=== PATIENT | female | born 1995 | race Caucasian/White ===

== ENCOUNTER 2020-10-23 02:12 | Outpatient (CLI) | payer MEDICAID, SELFPAY ==
--- NOTE | 2020-10-23 | DI.US_ITS ---
Exam(s) US OB 2-3 TRIMESTER EXAM: US OB 2-3 TRIMESTER CLINICAL HISTORY: SUPERVISION NORMAL IN SECOND TRIMESTER Z34.02. TECHNIQUE: Transabdominal obstetrical ultrasound was performed. COMPARISON: No exams were available for comparison FINDINGS: There is a single viable intrauterine gestation with cardiac activity identified-163 bpm. Amniotic fluid: There is a normal amount of amniotic fluid. Placental location: The placenta is anterior grade 0,with no evidence of placenta previa.The distance from the tip of placenta to the internal cervical os is 7.1 cm ANATOMY: A 3 vessel umbilical cord is seen. A four-chamber cardiac view was obtained. Right and left ventricular outflow tracts were imaged. There are no obvious abnormalities of the spinal column evident. There is no obvious abnormal ity of the anterior abdominal wall. stomach and urinary bladder are identified and there is no evidence of hydronephrosis. No abnormalities of the upper lip region are identified. No evidence of choroid plexus cysts i n the brain. Dating parameters place this at approximately 21 weeks and 5 days gestational age. BPD measures 21 weeks and 6 days HC measures 21 weeks and 4 days AC measures 21 weeks and 5 days FL measures 21 weeks and 3 days Estimated weight is 437 gm-0 pounds 15 ounces Fetus is at the 31st percentile on the Hadlock scale. IMPRESSION:: Single viable intrauterine gestation which is approximately 21 weeks and 5 days gestati onal age, implying an HEATHER of February 28, 2021. There are no obvious anomalies evident on today's study. The placenta is anterior with no evidence of placenta previa. There is a normal amount of amniotic fluid. DATA REPOSITORY:
== END 2020-10-23 02:32 ==
PROVIDERS: PCP Nurse Practitioner; Visit Provider Family Medicine
DX: Z34.02 Encounter for supervision of normal first pregnancy, second trimester (principal); Z3A.21 21 weeks gestation of pregnancy
CPT/HCPCS: 76805

== ENCOUNTER 2021-02-20 03:26 | Outpatient (CLI) | payer MEDICAID, SELFPAY ==
[2021-02-20 12:28] LABS: Source Nasal/Nares
[2021-02-20 18:50] LABS: COVID-19 PCR Negative (Negative)
== END 2021-02-20 03:27 | disposition home or self-care (01) ==
LOC: LBO 03:26
PROVIDERS: PCP Nurse Practitioner; Visit Provider Obstetrics & Gynecology
DX: Z20.822 Contact with and (suspected) exposure to COVID-19 (principal); Z01.818 Encounter for other preprocedural examination
CPT/HCPCS: 36415; 85027; 86850; 86900; 86901; 87635

== ENCOUNTER 2021-02-21 06:00 | Inpatient (IN) | payer MEDICAID, SELFPAY ==
--- NOTE | 2021-02-20 09:51 | W.PM.OBHPL1 ---
Date of service: 02/20/21 Time of Service: 09:51 Assessment and Plan Assessment and plan (1) Term , repeat: Status: Acute Assessment and plan: Patient is a 25-year-old 2 para 1 at 39 weeks and 1 day. She had a previous low transverse section and declines trial of labor. Risk benefits and alternatives of this have been explained to the patient and full informed consent was obtained. She is scheduled for repeat section, possible hysterectomy to be performed on 02/21/2021. Anticipate postoperative care (2) History of section, low transverse: Status: Acute OB-HPI Labor/Delivery History of Present Illness Reason for Visit: Scheduled section, declined TOLAC Chief Complaint: Scheduled Section , Inidcation for Scheduled : Previous .. HEATHER Calculator Estimated Delivery Date Method Current WG Current Estimate 02/27/21 Manual 39w 0d Comments: Based on EDC with early ultrasound. Patient had a previous section labor arrest 9 cm. Previous history of gestational diabetes. Recent history of mildly elevated blood pressure History of Present Expected Delivery Route/Plan Scheduled repeat section Assessment: History Reviewed & Current Narrative: Patient is a 25-year-old 2 para 1 with an EDC of 02/27/2021. She has had a previous section due to labor arrest at 9 cm. Originally, she was considering a trial of labor, however more recently declined. Risk benefits and alternatives have been previously discussed in full informed consent is obtained. Informed Consent Informed Consent: Section Delivery Review of Systems All systems reviewed & are unremarkable except as noted in HPI and below Constitutional Constitutional: Reports as per HPI Eyes Eyes: Reports system reviewed and no additional complaints, except as documented Cardiovascular Cardiovascular: Reports system reviewed and no additional complaints, except as documented Respiratory Respiratory: Reports system reviewed and no additional complaints, except as documented Genitourinary Genitourinary: Reports system reviewed and no additional complaints, except as documented Psychiatric Psychiatric: Reports system reviewed and no additional complaints, except as documented [facility] Medical History (Updated 02/20/21 @ 09:55 by Shae Al DO) Asthma Impetigo Learning disability Term , repeat Warts face Surgical History (Updated 02/20/21 @ 09:55 by Shae Al DO) History of section, low transverse Social History Smoking/Tobacco Use Status: Never Smoking risk assessment performed?: Yes History History 2 Para Hx # Term Pregnancies 1 Multiple births Hx # Pregnancies Ectopic pregnancies AB induced Hx Number of Living Children 1 AB spontaneous Meds Allergies and Home Medications Allergies Allergy/AdvReac Type Severity Reaction Status Date / Time No Known Allergies Allergy Unverified 03/07/15 10:32 Home Medications Medication Instructions Recorded Confirmed Type desogestrel-ethinyl estradiol 1 ea PO DAILY NS 03/07/15 04/10/17 History [Ortho-Cept] hydrocortisone [Proctozone-Hc] 30 gm TOPICAL BID #1 tube 03/07/15 History nitrofurantoin monohyd/m-cryst 100 mg PO Q12H tab-cap NS 03/07/15 04/10/17 History [Macrobid 100 Mg Capsule] phenazopyridine [Pyridium] 100 mg PO TID NS 03/07/15 04/10/17 History prenat.vits,rene,hkh-ajbn-ejwse 1 tab PO DAILY 04/10/17 04/10/17 History [ Vitamins] Exam Detailed Labor and Delivery Exam Overton Score: Cervical Points Exam 0 1 2 3 Dilation Closed 1-2cm 3-4 cm 5-6cm Effacement 0-30% 40-50% 60-70% 80% Consistency Firm Medium Soft Station -3 -2 -1,0 +1,+2 Position Posterior Mid Anterior Risk Assessment Risk for Shoulder Dystocia Historical/Initial OB: NEGATIVE FOR: Pelvic Abnormality, Pre- BMI>30, Previous Shoulder Dystocia or Previous Macrosomia Increased Risk?: No Date/Initial: KJ Delivery Plan @ 40 wks: Repeat section Risk for Pre-Eclampsia Yes, if one or more: NEGATIVE FOR: Hx Pre-E/Gest HTN, Chronic HTN, Multiple Gestation, Pre-gestational DM, Renal Disease, Systemic Lupus or APA Syndrome Yes, if 2 or more: POSITIVE FOR: BMI>30; NEGATIVE FOR: Nulliparity, Age>= 35 yrs, >10yr btwn pregnancies, ethinicty or Previous IUGR Risk for Post- Hemorrhage Initial: NEGATIVE FOR: Multiple Gestation, Previous PPH, Known Clotting Deficiency, Grand Multiparity or Anticoagulation At Risk?: Yes Interventions: IV access, type and screen Counseled re: Active Management: Yes Date/Initials: MEHUL 12/25/20, MEHUL 02/20/2021 Risks Reviewed Risks Reviewed Upon Admission: Yes
[2021-02-21] VITALS (17 sets, daily range): BP systolic 115–130; BP diastolic 73–89; PULSE 76–94; RESP 16–18; TEMP 36.4–36.6; O2SAT 91–99; BMI 35.2
[2021-02-21] MEDS: Sodium Citrate 30 ML CUP PO (06:57)
[2021-02-21] MEDS: Lactated Ringers 1,000 ML 200 ML IV (06:57)
[2021-02-21] MEDS: ceFAZolin 2 GM/50 ML BAG IVPB (06:58)
--- NOTE | 2021-02-21 07:21 | W.ANESPRE ---
General Info Date of Service Date Performed: 02/21/21 Height: 5 ft Weight: 81.647 kg Body Mass Index (BMI): 35.2 Surgical Procedure: Operation Date: 02/21/21 07:40 Proposed Procedures Side Surgeon p Section Shae Al DO Meds Allergies and Home Medications Allergies Allergy/AdvReac Type Severity Reaction Status Date / Time No Known Allergies Allergy Unverified 02/20/21 15:04 Home Medication Medication Instructions Recorded desogestrel-ethinyl estradiol 1 ea PO DAILY NS 03/07/15 [Ortho-Cept] hydrocortisone [Proctozone-Hc] 30 gm TOPICAL BID #1 tube 03/07/15 nitrofurantoin monohyd/m-cryst 100 mg PO Q12H tab-cap NS 03/07/15 [Macrobid 100 Mg Capsule] phenazopyridine [Pyridium] 100 mg PO TID NS 03/07/15 prenat.vits,rene,jes-pxya-lncos 1 tab PO DAILY 04/10/17 [ Vitamins] Current Visit Medications: Current Medications Generic Name Dose Route Start Last Admin Trade Name Freq PRN Reason Stop Dose Admin Citric Acid/Sodium Citrate 30 ml 02/20/21 10:00 02/21/21 06:57 Sodium Citrate 30 Ml Cup PO 30 ml PREOP HEAVEN Administration Sodium Chloride 500 mls @ 0 mls/hr 02/20/21 09:36 Saline 500ml Bag IV PRN PRN As Directed Ringer's Solution 1,000 mls @ 200 mls/hr 02/20/21 09:45 02/21/21 06:57 IV 200 mls/hr INFUSION HEAVEN Administration Cefazolin Sodium/Dextrose 2 gm in 50 mls @ 100 mls/hr 02/20/21 09:45 02/21/21 06:58 Ancef Duplex IVPB 100 mls/hr PREOP HEAVEN Administration Azithromycin 500 mg/ Sodium 250 mls @ 250 mls/hr 02/20/21 09:45 Chloride IVPB PREOP HEAVEN IV Miscellaneous Supplies 1 each 02/20/21 09:45 Iv Access IV DIRECTED HEAVEN Sodium Chloride 0 ml 02/20/21 09:36 Normal Saline Flush 10 Ml Syr IVP PRN PRN PFSH Active Problems Active Problems: Problem Status Onset Code History of section, low transverse Z98.891 Term , repeat Z34.90 Medical History Medical History (Updated 02/20/21 @ 09:55 by Shae Al DO) Asthma Impetigo Learning disability Term , repeat Warts face Surgical History Surgical History (Updated 02/20/21 @ 09:55 by Shae Al DO) History of section, low transverse Tobacco Smoking/Tobacco Use Status: Never Alcohol Alcohol Intake: never Substance Use Substance use: Never Substance use type: does not use Prental History History 2 Para 1 Hx # Term Pregnancies 1 Multiple births Hx # Pregnancies Ectopic pregnancies AB induced Hx Number of Living Children 1 AB spontaneous Vital Signs and Lab Results Vital Signs Most Recent Vital Signs in EMR: Most Recent Vital Signs Pulse Resp BP Pulse Ox 82 16 128/81 99 02/21/21 06:30 02/21/21 06:27 02/21/21 06:30 02/21/21 06:27 Lab Results Result Diagrams: 02/21/21 06:00 Blood Type / Crossmatch: Patient ABO/Rh O Positive 02/20/21 10:30 02/20/21 Antibody Screen NEGATIVE 02/20/21 10:30 02/20/21 Complete Blood Count: White Blood Count 7.64 10^3/uL (4.4-10.8) 02/20/21 10:30 02/20/21 Red Blood Count 3.90 10^6/uL (3.93-5.22) L 02/20/21 10:30 02/20/21 Hemoglobin 11.5 g/dL (11.2-15.7) 02/20/21 10:30 02/20/21 Hematocrit 34.8 % (36.0-46.0) L 02/20/21 10:30 02/20/21 Platelet Count 168 10^3/uL (130-400) 02/20/21 10:30 02/20/21 Complete Metabolic Panel: No Data to Display Liver Function Panel: No Data to Display Coagulation Panel: No Data to Display Cardiac Panel: No Data to Display Arterial Blood Gas: No Data to Display Venous Blood Gas: No Data to Display Pancreas Panel: No Data to Display Thyroid Panel: No Data to Display Infectious Disease: Coronavirus (COVID-19)(PCR) Negative (Negative) 02/20/21 10:43 02/20/21 Coronavirus 2019 Source Nasal/Nares 02/20/21 10:43 02/20/21 Blood Cultures: No Data to Display Toxicology Panel: No Data to Display Panel: No Data to Display Anesthesia Assessment and Plan Anesthesia History Personal History: No History of Anesthesia Complications Family History: No Family History of Anesthesia Complications Exercise Tolerance Exercise Tolerance: Metabolic Equivalents>4 Pertinent Negatives Pertinent Negatives: No Symptoms of GERD, No Major Cardiovascular Symptoms or Complaints, No Major Pulmonary Symptoms or Complaints and No History of CVA/TIA Cardiac & Pulmonary Exam Cardiac Exam: Normal S1/S2 Heart Sounds Pulmonary Exam: Clear Bilateral Breath Sounds Airway Exam Known Difficult Airway: No Mallampati Class: 2 Mouth Opening: Normal (> 3cm) Thyromental Distance: Greater than 3 cm Neck Range of Motion: Full ROM Neck Circumference: Normal Teeth Condition: Normal Dentition ASA Classification ASA Score: ASA 2 Emergency Case?: No NPO Status NPO Status: NPO Clears >2 hours, Solids >8 hours Status Status: Not Relevant due to Medical History Anesthesia Plan Resuscitation Status: Full Code Anesthesia Technique: Spinal Anesthesia Airway Planned: Natural Airway Monitors Used: Standard Monitors
[2021-02-21] MEDS: AZITHROMYCIN 500 MG in Normal Saline 250 ML 250 MG IVPB (07:42)
[2021-02-21] MEDS: Bupivacaine 0.25% Pres-Free 30 ML VIAL (08:27)
[2021-02-21] MEDS: Ketorolac 30 MG/ML VIAL IVP ×3 (08:30→20:16)
--- NOTE | 2021-02-21 08:59 | W.PM.OBCSECT ---
Date of service: 02/21/21 Time of Service: 08:59 Operative Note Operative Note Delivery Method: Scheduled DATE OF PROCEDURE: 02/21/21 PRE-OP DIAGNOSES: Prior section, declines trial of labor POST-OP DIAGNOSES: same Same with adhesions of the uterus to the anterior abdominal wall PROCEDURE: Repeat low transverse section with adhesiolysis SURGEON: Shae Al Assisting Surgeon: Yesenia Gabriel Anesthesia: local and spinal Estimated blood loss (mL): 300 Pathology: none sent Complications: None Patient was transported to: floor Patient's condition: stable Indications: Previous low transverse section, declines trial of labor Findings: Delivery of a viable female . Normal tubes and ovaries. Adhesions of the mid uterus to the anterior abdominal wall Procedure Description: Patient 25-year-old female with a history of prior low transverse section. She had care with [facility]. She declined trial of labor and requested repeat section. This was scheduled after 39 weeks gestation. Risk and alternatives of section were explained to the patient in full informed consent had been obtained. She received preoperative antibiotics with 2 g of Ancef and 500 mg of Zithromax. She had pneumatic compression stockings for DVT prophylaxis. She was taken to the operating suite where she is placed in the seated position and spinal anesthesia administered, tested and found to be adequate. She was then placed in dorsal supine position with leftward tilt and prepped and draped in usual sterile fashion. Baez catheter had been inserted for continuous bladder drainage. Pfannenstiel skin incision was made through her previous Pfannenstiel scar. This was carried down to the underlying fascia which was nicked in the midline and extended laterally. With meticulous dissection of the fascia from the peritoneum there was noted to be adhesions of the anterior abdominal wall to the mid body of the uterus. These were meticulously sharply dissected away allowing access to the peritoneum. Bladder blade was then inserted and the vesicouterine peritoneum identified tented up and entered sharply and the bladder flap was created. The bladder blade was then reinserted and a low transverse uterine incision was made with a scalpel and extended bluntly laterally. The vertex was delivered atraumatically. There was no evidence of nuchal cord. Shoulders followed with ease. Three-vessel cord was noted clamped x2 and cut and the was handed off to the waiting [facility] group. At this point cord blood gases and cord blood sample were both obtained. Cord gases were not sent due to appropriate, normal Apgars. At this point the placenta was manually expressed from the uterine, uterine exteriorized and cleared of all clot and debris. The uterine incision was closed using 0 Monocryl suture in a 2 layer closure, first with a running locked fashion second layer is imbricated. There is evidence of serosal area that was denuded in the mid uterus. This was cauterized with Bovie cautery and found to be hemostatic. The uterus was then returned to the abdomen, abdomen irrigated with copious amounts of normal saline and an uterine incision again reinspected and found to be hemostatic. Fascial incision was closed using 0 Vicryl suture in a running fashion. Subcutaneous tissue was irrigated with copious amounts of normal saline. 50-50 mix of quarter percent Marcaine with Exparel was infiltrated into the subcu space down to the fascia. Subcu space was reapproximated with simple interrupted sutures of 3-0 Vicryl suture and the skin edge reapproximated with 4-0 undyed Monocryl in a subcuticular fashion. Steri-Strips were placed as was a sterile dressing. Patient tolerated procedure without difficulty. She was returned to her room in stable condition with a Baez catheter draining clear yellow urine. EBL: 300 mL Complications: None apparent Pathology: None sent Findings: Normal ovaries and tubes. Adhesions of the uterus to the anterior abdominal wall. Delivery of a viable female . Hemorrrhage Note Total Blood Loss for PPH Event Quantitative Blood Loss: 300
[2021-02-21] MEDS: Oxytocin/Normal Saline 30 UNIT/500 ML BAG 95 UNITS IV (09:00)
[2021-02-21] MEDS: NALBUPHINE 5 MG in Normal Saline 50 ML 100 MG IVPB (09:31)
[2021-02-21] MEDS: Metoclopramide 10 MG/2 ML VIAL IVP (10:14)
--- NOTE | 2021-02-21 10:39 | W.ANESPOSTOP ---
Postoperative Evaluation Date, Time and Location Date Performed: 02/21/21 Time Performed: 09:15 Patient Location: Obstetrics Vital Signs Most Recent Imported Vital Signs: Most Recent Vital Signs Temp Pulse Resp BP Pulse Ox 36.6 C 85 18 124/81 99 02/21/21 10:15 02/21/21 10:15 02/21/21 10:15 02/21/21 10:15 02/21/21 10:15 Pain Score Most Recent Pain Score: Most Recent Pain Score Pain Level 0 02/21/21 09:30 Assessment Mental Status: Awake (Alert & Oriented to Patient Baseline) Airway and Respiratory Function: Patent airway with normal (patient baseline) respiratory exam Cardiovascular Function: Hemodynamically Stable Hydration Status: Adequately Hydrated Nausea & Vomiting: No Nausea or Vomiting Pain: Pt. Denies Any Pain Peripheral Nerve Block: Patient did not receive a nerve block
[2021-02-21] MEDS: Ondansetron 4 MG/2 ML VIAL IVP (12:04)
[2021-02-21] MEDS: Lactated Ringers 1,000 ML 120 ML IV (13:58)
--- NOTE | 2021-02-21 15:22 | W.PM.OBPNV1 ---
Date of service: 02/21/21 Time of Service: 15:23 Assessment and Plan Assessment and plan (1) Status post repeat low transverse section: Status: Acute Assessment and plan: Postoperative day #0 status post repeat low transverse section. He is having some nausea. Somewhat improved this afternoon. Will increase activity. Control pain. Baez catheter out when patient desires Subjective Subjective Interval history: Patient seen postoperative day #0 status post repeat low for section. Overall she is doing well. She has had some nausea and vomiting. Pain is well controlled. Vital signs are stable. Patient comments: Pain well controlled baby status: Doing well, Nursing well and Strong Bonding Observed feeding status: Exclusively breast feeding Exam Physical Exam Vital signs: Temp Pulse Resp BP Pulse Ox 97.9 F 94 H 16 127/73 97 02/21/21 12:45 02/21/21 12:45 02/21/21 12:45 02/21/21 12:45 02/21/21 12:45 Constitutional Constitutional: no acute distress HEENT Exam HEENT Exam: Normal Neck Exam Neck Exam: Normal Respiratory Exam Respiratory Exam: Normal Cardiovascular Exam Cardiovascular Exam: Normal Abdominal Exam Comments: Normal Results Hemoglobin/Hematocrit: Hgb Cancelled 02/21/21 06:00 Hct Cancelled 02/21/21 06:00
[2021-02-21] MEDS: Docusate Sodium 100 MG CAP PO (20:15)
[2021-02-21] MEDS: Acetaminophen 325 MG TAB 650 MG PO (20:15)
[2021-02-22 00:05] VITALS: BP 100/68; PULSE 82; RESP 15; TEMP 36.7; O2SAT 99
[2021-02-22] MEDS: Ketorolac 30 MG/ML VIAL IVP ×2 (02:23→07:58)
[2021-02-22] MEDS: Normal Saline Flush 10 ML SYR IVP ×2 (02:23→08:06)
[2021-02-22] MEDS: Acetaminophen 325 MG TAB 650 MG PO ×2 (02:30→12:47)
[2021-02-22 04:15] VITALS: BP 108/70; PULSE 74; RESP 16; TEMP 36.6; O2SAT 99
[2021-02-22 07:15] VITALS: BP 113/77; PULSE 85; RESP 18; TEMP 36.5; O2SAT 97
[2021-02-22] MEDS: Docusate Sodium 100 MG CAP PO (08:06)
--- NOTE | 2021-02-22 10:14 | W.PM.OBPNV1 ---
Date of service: 02/22/21 Time of Service: 10:14 Assessment and Plan Assessment and plan (1) Status post repeat low transverse section: Status: Acute Assessment and plan: Postoperative day #1 status post repeat low transverse section. Doing well. Good pain control. Stable vital signs. Would like discharge home today. Discharge plan made. We will follow-up in the office in 1 to 2-week for both emotional and postoperative checkup. Subjective Subjective Interval history: Patient seen and examined postoperative day #1. She is doing well. She has been ambulating and tolerating a regular diet. Her pain is well controlled. She is breast-feeding without difficulty. She would like circumcision for her infant today which will be performed by family practice and she would like discharge home if possible. Patient comments: No complaints, Pain well controlled, Incisional pain, Tolerating diet and Flatus present [place] baby status: Doing well, Nursing well and Strong Bonding Observed Exam Physical Exam Vital signs: Temp Pulse Resp BP Pulse Ox 97.7 F 85 18 113/77 97 02/22/21 07:15 02/22/21 07:15 02/22/21 07:15 02/22/21 07:15 02/22/21 07:15 Constitutional Constitutional: no acute distress HEENT Exam HEENT Exam: Normal Neck Exam Neck Exam: Normal Respiratory Exam Respiratory Exam: Normal Detail Cardiovascular Exam Cardiovascular: Present RRR Abdominal Exam Abdomen: Tender Comments: Incision is clean, dry, intact. Fundal Exam Fundus: Firm Extremities Exam Extremity Exam: Normal; negative Calf Tenderness and Edema Skin Exam Skin Exam: Normal DetailedPsychiatric Exam Psych Exam: Normal Affect, Normal Thougth Process, Good Insight and Good Judgement Results Hemoglobin/Hematocrit: Hgb Cancelled 02/21/21 06:00 Hct Cancelled 02/21/21 06:00
--- NOTE | 2021-02-22 10:16 | W.PM.DS.N ---
Date of service: 02/22/21 Time of Service: 10:16 DS: Diagnosis Discharge Diagnosis (1) Status post repeat low transverse section: Status: Acute Discharge Plan Disposition Patient Disposition: HOME Condition: Good Discharge Details Reason For Visit: Delivery Admit Date/Time: 02/21/21 06:00 Admit Provider: Shae Al Attending Provider: Shae Al Primary Care Provider: Julianne Murray Hospital Course Hospital Course: Patient was admitted for repeat low transverse section at 39 weeks and 1 day. She had a previous section and declined trial of labor. She underwent an uncomplicated section and was discharged home postoperative day #1, ambulating, tolerating regular diet and oral pain medication with stable vital signs. She will have close postoperative follow-up in the office in 1 to 2 weeks and again in 6 weeks time. She had delivery of a viable male with no complications Home Meds and New Rx's Prescriptions: New oxycodone-acetaminophen [Percocet] 5-325 mg tablet 1 tab PO Q8H PRNQty: 10 RF: 0 ibuprofen 800 mg tablet 800 mg PO Q8H PRNQty: 60 RF: 1 docusate sodium [Colace] 100 mg capsule 100 mg PO BID Qty: 30 RF: 0 Continued hydrocortisone [Proctozone-HC] 30 GM cream with perineal applicator 30 gm Topical BID Qty: 1 RF: 0 Vitamin 1 EACH tablet 1 tab PO DAILY RF: 0 Discontinued desogestrel-ethinyl estradiol [Ortho-Cept (28)] 1 EACH tablet 1 ea PO DAILY RF: 0 phenazopyridine [Pyridium] 100 MG tablet 100 mg PO TID RF: 0 nitrofurantoin monohyd/m-cryst [Macrobid] 100 MG capsule 100 mg PO Q12H RF: 0 Discharge Instructions Additional Instructions: Follow up with Dr. Al in 1-2 weeks Stand Alone Forms: BC Discharge Instruc Activity:: Pelvic rest Equipment/Supplies:: No Equipment Needed Diet:: As Tolerated Discharge Orders Discharge Orders: Discharge Order (Routine); Ordered 02/22/21 Ordered By: Shae Al DS: Summary Time Spent with Patient providing and/or coordinating discharge services: Greater than 30 minutes Status at Discharge Functional status at discharge: independent ambulation Overall status at discharge: patient is back to baseline Mental Status: mental status grossly normal Speech and Movement: speech and movement normal Mood: congruent mood Affect: normal affect Exam Psych Mental Status: mental status grossly normal Speech and Movement: speech and movement normal Mood: congruent mood Affect: normal affect DS: Data Vitals/I&O Vitals and I&O: Vital Signs Temperature 97.7 F 02/22/21 07:15 Temperature Source Oral 02/21/21 19:29 Pulse 85 02/22/21 07:15 Pulse Rhythm Regular 02/22/21 07:15 Respiratory Rate 18 02/22/21 07:15 Blood Pressure 113/77 02/22/21 07:15 Blood Pressure Mean 89 02/22/21 07:15 Pulse Oximetry 97 02/22/21 07:15 Oxygen Delivery Method Room Air 02/21/21 19:29 Oxygen Flow Rate 0 02/21/21 19:29 Pain Level 0 02/21/21 09:30 Intake & Output 02/21/21 02/21/21 02/22/21 11:59 23:59 11:59 Intake Total 1100.5 / 1850.5 750 / 1850.5 1000 / 1000 Output Total 500 / 2550 2050 / 2550 600 / 600 Balance 600.5 / -699.5 -1300 / -699.5 400 / 400 Weight 180 lb Intake: IV 1100.5 / 1850.5 750 / 1850.5 1000 / 1000 Output: Urine 1750 / 1750 600 / 600 Emesis 200 / 500 300 / 500 Estimated Blood Loss 300 / 300 Other: Urine Color Pale Yellow Yellow Urine Appearance Clear Clear PFSH Medical History Asthma Impetigo Learning disability Term , repeat Warts face Surgical History History of section, low transverse Status post repeat low transverse section Social History Smoking/Tobacco Use Status: Never Smoking risk assessment performed?: Yes Alcohol Intake: never Drug use: Never Substance use type: does not use Do you feel safe at home: Yes Do you feel safe in your relationship?: Yes History History 2 Para 1 Hx # Term Pregnancies 1 Multiple births Hx # Pregnancies Ectopic pregnancies AB induced Hx Number of Living Children 1 AB spontaneous
--- NOTE | 2021-02-22 10:23 | W.PM.DS.N ---
Date of service: 02/22/21 Time of Service: 10:23 DS: Diagnosis Discharge Diagnosis (1) Status post repeat low transverse section: Status: Acute Discharge Plan Disposition Patient Disposition: HOME Condition: Good Discharge Details Reason For Visit: Delivery Admit Date/Time: 02/21/21 06:00 Admit Provider: Shae Al Attending Provider: Shae Al Primary Care Provider: Julianne Murray Hospital Course Hospital Course: Patient was admitted for repeat low transverse section at 39 weeks and 1 day. She had a previous section and declined trial of labor. She underwent an uncomplicated section and was discharged home postoperative day #1, ambulating, tolerating regular diet and oral pain medication with stable vital signs. She will have close postoperative follow-up in the office in 1 to 2 weeks and again in 6 weeks time. She had delivery of a viable male with no complications Home Meds and New Rx's Prescriptions: New oxycodone-acetaminophen [Percocet] 5-325 mg tablet 1 tab PO Q8H PRNQty: 10 RF: 0 ibuprofen 800 mg tablet 800 mg PO Q8H PRNQty: 60 RF: 1 docusate sodium [Colace] 100 mg capsule 100 mg PO BID Qty: 30 RF: 0 Continued hydrocortisone [Proctozone-HC] 30 GM cream with perineal applicator 30 gm Topical BID Qty: 1 RF: 0 Vitamin 1 EACH tablet 1 tab PO DAILY RF: 0 Discontinued desogestrel-ethinyl estradiol [Ortho-Cept (28)] 1 EACH tablet 1 ea PO DAILY RF: 0 phenazopyridine [Pyridium] 100 MG tablet 100 mg PO TID RF: 0 nitrofurantoin monohyd/m-cryst [Macrobid] 100 MG capsule 100 mg PO Q12H RF: 0 Discharge Instructions Additional Instructions: Follow up with Dr. Al in 1-2 weeks Stand Alone Forms: BC Discharge Instruc Activity:: Pelvic rest Equipment/Supplies:: No Equipment Needed Diet:: As Tolerated Discharge Orders Discharge Orders: Discharge Order (Routine); Ordered 02/22/21 Ordered By: Shae Al DS: Summary Time Spent with Patient providing and/or coordinating discharge services: Less than 30 minutes Status at Discharge Functional status at discharge: independent ambulation Overall status at discharge: patient is progressing back to baseline Mental Status: mental status grossly normal Speech and Movement: speech and movement normal Mood: congruent mood Affect: normal affect Exam Narrative Exam Narrative: See physical exam from progress note dated 01/2021 Psych Mental Status: mental status grossly normal Speech and Movement: speech and movement normal Mood: congruent mood Affect: normal affect DS: Data Vitals/I&O Vitals and I&O: Vital Signs Temperature 97.7 F 02/22/21 07:15 Temperature Source Oral 02/21/21 19:29 Pulse 85 02/22/21 07:15 Pulse Rhythm Regular 02/22/21 07:15 Respiratory Rate 18 02/22/21 07:15 Blood Pressure 113/77 02/22/21 07:15 Blood Pressure Mean 89 02/22/21 07:15 Pulse Oximetry 97 02/22/21 07:15 Oxygen Delivery Method Room Air 02/21/21 19:29 Oxygen Flow Rate 0 02/21/21 19:29 Pain Level 0 02/21/21 09:30 Intake & Output 02/21/21 02/21/21 02/22/21 11:59 23:59 11:59 Intake Total 1100.5 / 1850.5 750 / 1850.5 1000 / 1000 Output Total 500 / 2550 2050 / 2550 600 / 600 Balance 600.5 / -699.5 -1300 / -699.5 400 / 400 Weight 180 lb Intake: IV 1100.5 / 1850.5 750 / 1850.5 1000 / 1000 Output: Urine 1750 / 1750 600 / 600 Emesis 200 / 500 300 / 500 Estimated Blood Loss 300 / 300 Other: Urine Color Pale Yellow Yellow Urine Appearance Clear Clear PFSH Medical History Asthma Impetigo Learning disability Term , repeat Warts face Surgical History History of section, low transverse Status post repeat low transverse section Social History Smoking/Tobacco Use Status: Never Smoking risk assessment performed?: Yes Alcohol Intake: never Drug use: Never Substance use type: does not use Do you feel safe at home: Yes Do you feel safe in your relationship?: Yes History History 2 Para 1 Hx # Term Pregnancies 1 Multiple births Hx # Pregnancies Ectopic pregnancies AB induced Hx Number of Living Children 1 AB spontaneous
== END 2021-02-22 13:10 | disposition home or self-care (01) | DRG 788 ==
PROVIDERS: Admitting Provider Obstetrics & Gynecology; PCP Nurse Practitioner; Visit Provider Obstetrics & Gynecology
PROC: 10D00Z1 Extraction of Products of Conception, Low, Open Approach (ICD-10-PCS; CPT 59514; principal; 2021-02-21 07:30)
DX: O34.211 Maternal care for low transverse scar from previous cesarean delivery (principal); Z37.0 Single live birth; N85.8 Other specified noninflammatory disorders of uterus; O99.52 Diseases of the respiratory system complicating childbirth; Z3A.39 39 weeks gestation of pregnancy; J45.909 Unspecified asthma, uncomplicated
CPT/HCPCS: 59514; 85027; 86900; 86901; J0456; J0690; J1885; J2405; J2765; J3010; J3490

== ENCOUNTER 2023-07-22 05:13 | Outpatient (CLI) | payer MEDICAID, SELFPAY ==
[2023-07-22 12:11] LABS: Abs Immature Grans 0.02 10^3/uL (0.0-0.06); Absolute Basophil Count 0.03 10^3/uL (0.0-0.2); Absolute Eosinophil Count 0.12 10^3/uL (0.0-0.7); Absolute Monocyte Count 0.45 10^3/uL (0.1-0.8); Absolute Neutrophil Count 4.84 10^3/uL (1.2-6.7); Basophils % 0.4; Eosinophils % 1.5; HCT 42.4 % (36.0-46.0); HGB 14.1 g/dL (11.2-15.7); Immature Grans % 0.3; Lymphocytes % 30.5; MCH 28.6 pg (27.0-33.0); MCHC 33.3 % (32.0-36.0); MCV 86 fL (80-95); MPV 9.8 fL (8.0-11.0); Monocytes % 5.7; Neutrophils % 61.6; Platelet Count 266 10^3/uL (130-400); RBC 4.93 10^6/uL (3.93-5.22); RDW 12.6 % (11.7-14.6); RDW-SD 39.3 fL; WBC 7.86 10^3/uL (4.4-10.8)
== END 2023-07-22 05:14 | disposition home or self-care (01) ==
LOC: LBO 05:13
PROVIDERS: PCP Nurse Practitioner; Visit Provider Obstetrics & Gynecology
DX: Z01.818 Encounter for other preprocedural examination (principal)
CPT/HCPCS: 36415; 86850; 86900; 86901; 85025

== ENCOUNTER 2023-07-23 10:04 | Day surgery (SDC) | payer MEDICAID, SELFPAY ==
[2023-07-23] VITALS (8 sets, daily range): BP systolic 116–129; BP diastolic 69–92; PULSE 74–84; RESP 16–21; TEMP 36.4–36.7; O2SAT 84–100; BMI 34.4
[2023-07-23] MEDS: Lactated Ringers 1,000 ML 125 ML IV (10:50)
--- NOTE | 2023-07-23 12:40 | ANES.PREOP_ITS ---
General Info Date of Service Date Performed: 07/23/23 Height: 5 ft Weight: 79.9 kg Body Mass Index (BMI): 34.4 Surgical Procedure: Operation Date: 07/23/23 12:55 Proposed Procedure Side Surgeon p Salpingectomy Laparoscopic Bilateral Shae Al DO [place] Allergies and Home Medications Allergies Allergy/AdvReac Type Severity Reaction Status Date / Time No Known Allergies Allergy Verified 07/23/23 10:21 Home Medication Medication Instructions Recorded ibuprofen 800 mg tablet 800 mg PO Q8H PRN #60 tabs 02/22/21 Current Visit Medications: Current Medications Generic Name Dose Route Start Last Admin Trade Name Freq PRN Reason Stop Dose Admin Ringer's Solution 1,000 mls @ 125 mls/hr 07/23/23 06:00 07/23/23 10:50 IV 07/23/23 23:59 125 mls/hr INFUSION HEAVEN Administration IV Miscellaneous Supplies 1 each 07/23/23 06:00 Iv Access IV 07/23/23 23:59 DIRECTED HEAVEN Sodium Chloride 0 ml 07/23/23 06:00 Normal Saline Flush 10 Ml Syr IV 07/23/23 23:59 PRN PRN Sodium Chloride 0 ml 07/23/23 06:00 Normal Saline 10 Ml Vial IJ 07/23/23 23:59 DIRECTED PRN Sterile Water 0 ml 07/23/23 06:00 Water,Injection,Sterile 10 Ml Vial IJ 07/23/23 23:59 DIRECTED PRN PFSH Medical History Medical History Asthma Impetigo Warts face Learning disability Surgical History Surgical History Status post repeat low transverse section History of section, low transverse Tobacco Smoking/Tobacco Use Status: Never Alcohol Alcohol Intake: never Substance Use Substance use: Never Substance use type: does not use Prental History History 2 Para 2 Hx # Term Pregnancies 2 Multiple births Hx # Pregnancies Ectopic pregnancies AB induced Hx Number of Living Children 2 AB spontaneous Past Pregnancies Del. Date GA/Weeks # Preg Succ Route Wgt Sex Labor Lgth Anesth esia Location Prov Complic 02/21/21 39 No 3359.418 g Male KJ Vital Signs and Lab Results Vital Signs Most Recent Vital Signs in EMR: Most Recent Vital Signs Temp Pulse Resp BP Pulse Ox 36.5 C 83 16 129/92 H 96 07/23/23 10:22 07/23/23 10:22 07/23/23 10:22 07/23/23 10:22 07/23/23 10:22 Point of Care Results Point of Care Results: POC- Test(urine) Negative 07/23/23 10:30 Lab Results Blood Type / Crossmatch: Patient ABO/Rh O Positive 07/22/23 Antibody Screen NEGATIVE 07/22/23 Complete Blood Count: White Blood Count 7.86 10^3/uL (4.4-10.8) 07/22/23 12:02 Red Blood Count 4.93 10^6/uL (3.93-5.22) 07/22/23 12:02 Hemoglobin 14.1 g/dL (11.2-15.7) 07/22/23 12:02 Hematocrit 42.4 % (36.0-46.0) 07/22/23 12:02 Platelet Count 266 10^3/uL (130-400) 07/22/23 12:02 Complete Metabolic Panel: No Data to Display Liver Function Panel: No Data to Display Coagulation Panel: No Data to Display Cardiac Panel: No Data to Display Arterial Blood Gas: No Data to Display Venous Blood Gas: No Data to Display Pancreas Panel: No Data to Display Thyroid Panel: No Data to Display Infectious Disease: No Data to Display Blood Cultures: No Data to Display Toxicology Panel: No Data to Display Panel: No Data to Display Anesthesia Assessment and Plan Anesthesia History Personal History: No History of General Anesthesia Family History: No Family History of Anesthesia Complications Exercise Tolerance Exercise Tolerance: Metabolic Equivalents>4 Pertinent Negatives Pertinent Negatives: No Symptoms of GERD, No Major Cardiovascular Symptoms or Complaints, No Major Pulmonary Symptoms or Complaints and No History of CVA/TIA Cardiac & Pulmonary Exam Cardiac Exam: Normal S1/S2 Heart Sounds Pulmonary Exam: Clear Bilateral Breath Sounds Implantable Cardiac Device Does patient have a Pacemaker or an ICD?: No Airway Exam Known Difficult Airway: No Mallampati Class: 3 Mouth Opening: Normal (> 3cm) Thyromental Distance: Greater than 3 cm Neck Range of Motion: Full ROM Neck Circumference: Normal Teeth Condition: Normal Dentition ASA Classification ASA Score: ASA 2 Emergency Case?: No NPO Status NPO Status: NPO Clears >2 hours, Solids >8 hours Status Status: Negative HCG Anesthesia Plan Resuscitation Status: Full Code Anesthesia Technique: General Anesthesia Airway Planned: Endotracheal Tube Monitors Used: Standard Monitors and SedLine
[2023-07-23] MEDS: Bupivacaine 0.25% Pres-Free 30 ML VIAL (13:36)
--- NOTE | 2023-07-23 13:46 | FALL_PTH ---
PATIENT: Ofelia Perdomo LOC: [facility] U#:[id number] AGE/SX: 27/F ROOM: RE07/23/[address]: Shae Al DO : 1995 BED: DIS: 07/23/2023 SPEC #: [id number] RECD: 07/24/23 11:59 STATUS: JAZIEL RE #: [id number] HARLAN: 07/23/23 13:[address]: Shae Al DEPT: Surgical Specimen RECD BY: Evelyn Matute ENTERED: 07/24/23 12:00 SP TYPE: Fall OTHR DR: Lisa Baig Tissues: 1 - FALLOPIAN TUBE (STERILIZATION) 2 - FALLOPIAN TUBE (STERILIZATION) Procedures: GROSS AND MICRO LEVEL 2 Comments: [id number]
--- NOTE | 2023-07-23 14:00 | W.PM.OP ---
Date of service: 07/23/23 Time of Service: 14:00 Operative Note Operative Note DATE OF PROCEDURE: 07/23/23 PRE-OP DIAGNOSIS: Undesired fertility POST-OP DIAGNOSIS: same (With adhesions of the uterus to the anterior abdominal wall, and omentum to the anterior abdominal wall.) PROCEDURE: Bilateral laparoscopic salpingectomy with lysis of adhesions SURGEON: Shae Al ASSISTING SURGEON: Tayla Mercado ANESTHESIA TYPE: Local By Surgeon and General LMA/ETT Refer to Anesthesia Record ESTIMATED BLOOD LOSS: 10 PATHOLOGY: other (1. Right fallopian tube 2. Left fallopian tube) COMPLICATIONS: None Patient was transported to: PACU Patient's condition: stable Indications: Undesired fertility Findings: Adhesions of the omentum to the anterior abdominal wall. Normal-appearing ovaries bilaterally. Normal-appearing fallopian tubes bilaterally. Uterus densely adherent to the anterior abdominal wall from fundus to lower uterine segment. Procedure Description: After full informed consent was obtained, patient taken the operating suite with an IV running where she is placed in the dorsal supine position. She had pneumatic compression stockings placed for DVT prophylaxis. She received no antibiotics for surgical site prophylaxis as none were warranted. General anesthesia administered via endotracheal intubation per anesthesia. She was then placed in a modified dorsolithotomy position prepped and draped in the usual sterile fashion. A straight catheter was used to empty approximately 200 cc of clear yellow urine from her bladder. Exam under anesthesia revealed a uterus that was somewhat limited in mobility. At this point speculum was inserted into the vaginal vault and a single-tooth tenaculum used to grasp the anterior lip of the cervix. Hulka uterine manipulator was placed within. Speculum was removed and attention was then turned to the abdomen. At this point a small infraumbilical skin incision was made and penetrating towel clips used to grasp the anterior saul wall and elevated. Veress needle was inserted into the abdomen and pneumoperitoneum created with CO2 gas to a maximum pressure of 15 mmHg. At this point a bladeless 12 mm sleeve and trocar were inserted into the abdomen under direct visualization. Upon entry to the abdomen there is noted to be adhesions of the omentum to the anterior abdominal wall, and a dense adhesion band from the fundus of the uterus to the lower uterine segment wall adherent to the anterior abdominal wall. Inspection of the remainder of the abdomen and pelvis revealed normal-appearing fallopian tubes bilaterally, normal-appearing ovaries bilaterally small amount of adhesions of the cecum to the right lower quadrant, anterior abdominal wall. At this point, after infiltration with quarter percent Marcaine and under direct visualization a 5 mm port was placed in the right and left lower quadrant respectively. With a LigaSure, the omental adhesion to the intra-abdominal wall was meticulously dissected. Attention was then turned to the left fallopian tube which was elevated, cautery transected and removed through the 12 mm port. A similar procedure was carried out on the opposite fallopian tube. At this point the pneumoperitoneum was released and pedicles reinspected and noted to be hemostatic. There was no evidence of intra-abdominal trauma or pathology other than the significant adhesions of the anterior abdominal wall to the uterus. Once pneumoperitoneum was released and trocars were removed, the fascial incision at the umbilicus was closed with 0 Vicryl suture in a simple interrupted fashion. Skin edges were reapproximated with 4-0 undyed Monocryl and Steri-Strips and sterile dressings were placed. Hulka uterine manipulator had been removed. At this point the patient was returned to the dorsal supine position and woke from anesthesia without difficulty. She was taken to the recovery room in stable condition. Complications: None apparent Pathology: 1. Right fallopian tube 2. Left fallopian tube Fluids: Crystalloid per anesthesia Findings: Adhesions of the omentum to the anterior abdominal wall which were meticulously dissected. Dense adhesions of the uterus to the anterior abdominal wall. Normal-appearing fallopian tubes and ovaries. EBL: 10 mL
[2023-07-23] MEDS: fentaNYL 100 MCG/2 ML VIAL IVP (14:27)
--- NOTE | 2023-07-23 14:45 | W.ANESPOSTOP ---
Postoperative Evaluation Date, Time and Location Date Performed: 07/23/23 Time Performed: 14:46 Patient Location: PACU Vital Signs Most Recent Imported Vital Signs: Most Recent Vital Signs Temp Pulse Resp BP Pulse Ox 36.7 C 78 21 116/72 100 07/23/23 14:11 07/23/23 14:11 07/23/23 14:11 07/23/23 14:11 07/23/23 14:11 Pain Score Most Recent Pain Score: Most Recent Pain Score Pain Level 0 07/23/23 14:11 Assessment Mental Status: Awake (Alert & Oriented to Patient Baseline) Airway and Respiratory Function: Patent airway with normal (patient baseline) respiratory exam Cardiovascular Function: Hemodynamically Stable Hydration Status: Adequately Hydrated Nausea & Vomiting: No Nausea or Vomiting Pain: Pain is tolerable per patient Peripheral Nerve Block: Patient did not receive a nerve block
== END 2023-07-23 16:05 | disposition home or self-care (01) ==
PROVIDERS: PCP Family Medicine; Visit Provider Obstetrics & Gynecology
PROC: (CPT 58661; principal; 2023-07-23 12:45)
DX: Z30.2 Encounter for sterilization (principal); J45.909 Unspecified asthma, uncomplicated; N73.6 Female pelvic peritoneal adhesions (postinfective)
CPT/HCPCS: 58661; 81025; 88302; J0665; J1100; J1885; J2001; J2405; J2704; J3010